=== PATIENT | male | born 1970 | race Caucasian/White ===

== ENCOUNTER 2018-08-16 15:14 | Emergency (ER) | payer OTHER ==
[~2018-08-16] VITALS: Ht 170.2 cm; Wt 72.6 kg
--- NOTE | ~2018-08-16 | EKG ---
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
[2018-08-16 17:16] LABS: ABSOLUTE NEUTROPHILS 5.4 thou/uL (1.4-8.2); BASOPHILS 0.6 % (0.0-2.0); EOSINOPHILS 6.7 % (0.0-3.0); HEMATOCRIT 45.6 % (42.0-52.0); LYMPHOCYTES 35.8 % (24.0-44.0); MCH 31.1 pg (26.0-34.0); MCHC 32.9 g/dL (28.0-37.0); MCV 94.3 fL (80.0-100.0); MONOCYTES 8.8 % (1.0-8.0); PLATELET COUNT 233 thou/uL (150-400); POLYS 48.1 % (36.0-66.0); RBC 4.84 mil/uL (4.50-6.00); RDW 13.3 % (10.5-14.5); WBC 11.2 thou/uL (4.0-11.0)
[2018-08-16 17:20] LABS: ANION GAP 10 mmol/L (7-16); BUN 19 mg/dL (7-18); CALCIUM 9.2 mg/dL (8.5-10.1); CHLORIDE 104 mmol/L (98-107); CO2 27 mmol/L (21-32); GLUCOSE 98 mg/dL (74-106); SODIUM 141 mmol/L (136-145)
[2018-08-16 17:29] LABS: TROPONIN-I <0.06 ng/mL (<0.06)
[2018-08-16] MEDS ORDERED: PREDNISONE 20 M20 MG PO (17:58)
[2018-08-16] MEDS ORDERED: AZITHROMYCIN 2250 MG PO (17:58)
[2018-08-16] MEDS ORDERED: TESSALON PERLE100 MG PO (17:58)
[2018-08-16 18:06] VITALS: BP 132/77
== END 2018-08-16 18:25 | disposition home or self-care (01) ==
LOC: ER 15:14
PROVIDERS: Nurse Practitioner Family
DX: J18.9 Pneumonia, unspecified organism (principal)